=== PATIENT | female | born 1985 | race Caucasian/White ===

== ENCOUNTER 2017-09-17 10:17 | Emergency (ER) | payer OTHER ==
[2017-09-17 11:08] VITALS: BP 128/69; PULSE 66; RESP 18; TEMP 98; O2SAT 98
--- NOTE | 2017-09-17 12:50 | ED PDOC ---
HPI: Female Pain Time Seen by Provider: 09/17/17 12:06 Chief Complaint (Nursing): Female Genitourinary Chief Complaint (Provider): gential rash History Per: Patient, Custody Assistant (manager case Maame at bedside) Additional Complaint(s): 32-year-old female presents to emergency department for evaluation of painful genital rash. Patient states she first noticed 1 painful lesion and then the next day she had several. She states the pain is a burning pain and when she urinates the pain increases when urine touches skin surface. She denies any fever or chills. She has had slight white vaginal discharge with no bleeding. No abd pain. Patient is currently sexually active with 1 partner and her partner does not have similar symptoms. Past Medical History Reviewed: Historical Data, Nursing Documentation, Vital Signs Vital Signs: Last Vital Signs Temp 98 F 09/17/17 11:05 Pulse 66 09/17/17 11:05 Resp 18 09/17/17 11:05 BP 128/69 09/17/17 11:05 Pulse Ox 98 09/17/17 11:05 - Medical History PMH: No Chronic Diseases - Surgical History Surgical History: No Surg Hx - Family History Family History: States: No Known Family Hx - Living Arrangements Living Arrangements: With Family - Social History Current smoker - smoking cessation education provided: No Alcohol: None Drugs: Denies - Home Medications Home Medications: Ambulatory Orders Medication Instructions Recorded Acetaminophen with Codeine 1 tab PO Q6 PRN #15 tab 02/01/15 [Tylenol with Codeine No. 3 300 mg-30 mg] Metronidazole [Metrogel] 60 gm VAG HS #1 packet 09/17/17 Nitrofurantoin Macrocrystals 100 mg PO BID #14 tab 09/17/17 [Macrobid] valACYclovir [Valtrex] 1 gm PO BID #20 tab 09/17/17 - Allergies Allergies/Adverse Reactions: Allergies Allergy/AdvReac Type Severity Reaction Status Date / Time No Known Allergies Allergy Verified 02/01/15 15:30 Review of Systems ROS Statement: Except As Marked, All Systems Reviewed And Found Negative Constitutional: Negative for: Fever Gastrointestinal: Negative for: Nausea, Vomiting, Abdominal Pain Genitourinary Female: Positive for: Dysuria, Vaginal Discharge, Rash. Negative for: Hematuria, Vaginal Bleeding Physical Exam - Reviewed Nursing Documentation Reviewed: Yes Vital Signs Reviewed: Yes - Physical Exam Appears: Positive for: Well, Non-toxic, No Acute Distress Cardiovascular/Chest: Positive for: Regular Rate, Rhythm Respiratory: Positive for: Normal Breath Sounds Gastrointestinal/Abdominal: Positive for: Soft. Negative for: Tenderness, Distended, Guarding, Rebound Pelvic Exam: Positive for: Lesions (Multiple raised vesicular, erythematous lesions noted to genitalia, moderate tenderness to palpation, no abscess noted, no active bleeding or drainage, copious amount of malodorous white discharge noted from close cervical os and no vaginal bleeding, no CMT and no adnexal tenderness bilaterally) Back: Negative for: L CVA Tenderness, R CVA Tenderness Extremity: Positive for: Normal ROM Neurologic/Psych: Positive for: Alert, Oriented - Laboratory Results Urine POC: Negative Urine dip results: Positive for: Leukocyte Esterase (small) - ECG O2 Sat by Pulse Oximetry: 98 Pulse Ox Interpretation: Normal Medical Decision Making Medical Decision Makin32 year old with vaginal discomfort Plan: Urine dip Urine UA Urine culture Herpes genital culture CHL/GC culture Given clinical presentation, patient will be treated empirically for genital herpes. Prescription for Valtrex provided. UTI also noted, Macrobid prescription also given. Patient also given prescription for MetroGel. She was advised to avoid intercourse until symptoms resolve. Patient was made aware that she will receive a phone call for any positive test results. Referred to women's clinic for follow-up and is aware she can come back to the ED at any time if acutely. Disposition - Clinical Impression Clinical Impression: Urinary tract infection, Genital herpes, Bacterial vaginosis - Patient ED Disposition Is Patient to be Admitted: No Counseled Patient/Family Regarding: Studies Performed, Diagnosis, Need For Followup, Rx Given - Disposition Referrals: Women's Health Clinic [Outside] Disposition: Routine/Home Disposition Time: 13:37 Condition: STABLE Additional Instructions: Take prescription medications as directed. Avoid intercourse until symptoms resolve. You will receive a call for any positive test results. Follow up with clinic in 2-3 days. Prescriptions: Metronidazole [Metrogel] 60 gm VAG HS #1 packet Nitrofurantoin Macrocrystals [Macrobid] 100 mg PO BID #14 tab valACYclovir [Valtrex] 1 gm PO BID #20 tab Instructions: Genital Herpes Simplex (ED), Urinary Tract Infection in Women (ED ), Bacterial Vaginosis (ED) Forms: [facility] (Swedish), [facility] (Argentine) Print Language: NEPALESE
[2017-09-17 13:12] LABS: RBC URINE 2 /hpf (0-3); URINE BACTERIA RARE (<OCC); URINE BILIRUBIN NEGATIVE (NEGATIVE); URINE BLOOD NEGATIVE (NEGATIVE); URINE COLOR YELLOW (YELLOW); URINE GLUCOSE (UA) NEG (Normal); URINE KETONE NEGATIVE (NEGATIVE); URINE LEUKOCYTE ESTERASE LARGE Leu/uL (Negative); URINE PROTEIN NEGATIVE (NEGATIVE); URINE UROBILINOGEN 0.2-1.0 mg/dL (0.2-1.0); WBC URINE 3 /hpf (0-5)
== END 2017-09-17 14:35 | disposition home or self-care (01) ==
LOC: H.ER 10:17
DX: A60.00 Herpesviral infection of urogenital system, unspecified (principal); N39.0 Urinary tract infection, site not specified; N76.0 Acute vaginitis

== ENCOUNTER 2018-09-20 14:27 | Emergency (ER) | payer OTHER, SELFPAY ==
[2018-09-20 15:13] VITALS: RESP 16; O2SAT 100
[2018-09-20 16:27] LABS: VENOUS BLOOD GAS BASE EXCESS -2.2 mmol/L (0.0-2.0); VENOUS BLOOD GAS PCO2 41 mmHg (40-60); VENOUS BLOOD GAS PO2 20 mm/Hg (30-55); VENOUS BLOOD PH 7.36 (7.32-7.43)
[2018-09-20 16:36] LABS: SQUAMOUS EPITHIAL 3 /hpf (0-5); URINE BACTERIA RARE (<OCC); URINE BILIRUBIN NEGATIVE (NEGATIVE); URINE GLUCOSE (UA) NEG (Normal); URINE LEUKOCYTE ESTERASE SMALL Leu/uL (Negative); URINE PROTEIN NEGATIVE (NEGATIVE); URINE UROBILINOGEN 0.2-1.0 mg/dL (0.2-1.0)
[2018-09-20 16:40] LABS: URINE BLOOD SMALL (NEGATIVE); URINE CLARITY SLIGHT-CLOUDY (Clear); URINE COLOR YELLOW (YELLOW)
[2018-09-20 16:45] LABS: BASO % 0.2 % (0.0-2.0); EOS % 0.3 % (0.0-4.0); HEMOGLOBIN 12.7 g/dL (12.0-16.0); LYMPH % 11.1 % (20.0-40.0); MEAN CELL VOLUME 92.1 fl (81.0-99.0); MEAN CORPUSCULAR HEMOGLOBIN 31.8 pg (27.0-31.0); MEAN CORPUSCULAR HGB CONC 34.6 g/dL (33.0-37.0); MEAN PLATELET VOLUME 7.4 fl (7.2-11.7); MONO # 0.2 K/uL (0.0-0.8); MONO % 2.6 % (0.0-10.0); NEUT # 7.9 K/uL (1.8-7.0); NEUT % 85.8 % (50.0-75.0); RBC 3.98 Mil/uL (3.80-5.20); RED CELL DISTRIBUTION WIDTH 12.8 % (11.5-14.5); WHITE BLOOD COUNT 9.2 K/uL (4.8-10.8)
--- NOTE | 2018-09-20 17:33 | ED PDOC ---
HPI: Female Pain Time Seen by Provider: 09/20/18 15:30 Chief Complaint (Nursing): Female Genitourinary Chief Complaint (Provider): Female Genitourinary History Per: Patient History/Exam Limitations: no limitations Onset/Duration Of Symptoms: Hrs Current Symptoms Are (Timing): Still Present Quality Of Discomfort: Cramping Associated Symptoms: denies: Vomiting, Diarrhea, Urinary Symptoms Additional Complaint(s): Gloria Brown is a 33 year old female with no past medical history who is and is 11 weeks , presenting to the ED for evaluation of vaginal bleeding onset today. Patient states that she noted some cramping this morning and then developed vaginal bleeding which got heavier and prompted her ED visit. She states that she follows up at [facility] and reports that she had no problems with previous pregnancies with no previous miscarriages. Patient adds that her initial clinic visit for this was unremarkable and she denies any vomiting, diarrhea, dysuria, or history of STDs. Otherwise, she has had an uncomplicated up to this point. PMD: Curtis Villalba [employer] #: [id number] Pierre Abnormal Vaginal Bleeding: Yes Past Medical History Reviewed: Historical Data, Nursing Documentation, Vital Signs Vital Signs: Last Vital Signs Temp 99 F 09/20/18 15:09 Pulse 104 H 09/20/18 15:09 Resp 16 09/20/18 15:09 BP 151/74 H 09/20/18 15:09 Pulse Ox 100 09/20/18 15:09 - Medical History PMH: No Chronic Diseases Denies: Chronic Kidney Disease - Surgical History Other surgeries: Dilation and curettage - Family History Family History: States: Unknown Family Hx - Social History Current smoker - smoking cessation education provided: No Alcohol: None Drugs: Denies - Home Medications Home Medications: Ambulatory Orders Medication Instructions Recorded Acetaminophen with Codeine 1 tab PO Q6 PRN #15 tab 02/01/15 [Tylenol with Codeine No. 3 300 mg-30 mg] Metronidazole [Metrogel] 60 gm VAG HS #1 packet 09/17/17 Nitrofurantoin Macrocrystals 100 mg PO BID #14 tab 09/17/17 [Macrobid] valACYclovir [Valtrex] 1 gm PO BID #20 tab 09/17/17 - Allergies Allergies/Adverse Reactions: Allergies Allergy/AdvReac Type Severity Reaction Status Date / Time No Known Allergies Allergy Verified 09/20/18 15:09 Review of Systems ROS Statement: Except As Marked, All Systems Reviewed And Found Negative Gastrointestinal: Positive for: Abdominal Pain. Negative for: Vomiting, Diarrhea Genitourinary Female: Positive for: Vaginal Bleeding Physical Exam - Reviewed Nursing Documentation Reviewed: Yes Vital Signs Reviewed: Yes - Physical Exam Appears: Positive for: Non-toxic, No Acute Distress Head Exam: Positive for: ATRAUMATIC, NORMAL INSPECTION, NORMOCEPHALIC Skin: Positive for: Normal Color, Warm, DRY Eye Exam: Positive for: EOMI, Normal appearance, PERRL ENT: Positive for: Normal ENT Inspection Neck: Positive for: Normal, Painless ROM, Supple Cardiovascular/Chest: Positive for: Regular Rate, Rhythm. Negative for: Murmur Respiratory: Positive for: Normal Breath Sounds. Negative for: Wheezing, Respi ratory Distress Gastrointestinal/Abdominal: Positive for: Soft, Tenderness (mild suprapubic tenderness) Pelvic Exam: Positive for: Other (deferred) Back: Positive for: Normal Inspection. Negative for: L CVA Tenderness, R CVA Tenderness, Vertebral Tenderness Extremity: Positive for: Normal ROM Neurologic/Psych: Positive for: Alert, Oriented. Negative for: Motor/Sensory De ficits - Laboratory Results Result Diagrams: 09/20/18 16:15 - ECG O2 Sat by Pulse Oximetry: 100 (RA) Pulse Ox Interpretation: Normal Medical Decision Making Medical Decision Making: Time: 16:10 A/P: workup for threatened --Labs, UA, IV fluids --Ultrasound --Reassess patient 20:20 Pt with sono showing single, live, intrauterine at approximately 12 wks 6 days. Labs WBL and blood type O+. Discussed threatened with patient and she will follow up in women's health clinic in 2 days. Return parameters discussed. --------- -------- Scribe Attestation: Documented by Khushi Dang, acting as a scribe for Linda Vega MD. Provider Scribe Attestation: All medical record entries made by the Scribe were at my direction and personally dictated by me. I have reviewed the chart and agree that the record accurately reflects my personal performance of the history, physical exam, medical decision making, and the department course for this patient. I have also personally directed, reviewed, and agree with the discharge instructions and di sposition. Disposition - Clinical Impression Clinical Impression: Threatened - Disposition Disposition: Routine/Home Disposition Time: 20:28 Condition: STABLE Additional Instructions: Follow up in Women's Health clinic on Saturday for repeat blood levels and evaluation. Return to the emergency department if bleeding worsens or if you develop nausea, vomiting, dizziness, or other new symptoms. Instructions: Threatened Miscarriage (DC), Bleeding With (DC) Forms: [facility] (Mozambican), [facility] (Citizen [place]) Print Language: MARSHALLESE
[2018-09-20 20:56] VITALS: BP 137/72; PULSE 97; TEMP 98.7
--- NOTE | 2018-09-22 12:17 | US ---
Date of service: 09/20/2018 PROCEDURE: Obstetrical ultrasound examination HISTORY: 11 wks with vaginal bleed COMPARISON: Not available TECHNIQUE: Transabdominal FINDINGS: There is a single live intrauterine gestation. The fetus is in variable presentation. A grossly normal quantity of amniotic fluid is visualized. A posterior placenta is identified. There was no evidence of placenta previa. The cervix is long and closed. It measures 3.2 cm in length. The heart rate is 169 beats per minute. A 2 mm yolk sac is identified. biometry yields an average gestational age of 12 weeks 5 days. The PIO by ultrasound is 03/30/2019. No uterine mass is identified. The right ovary measures 2.2 x 1.3 x 2.4 cm. Normal arterial blood flow is demonstrated. The left ovary measures 2.0 x 1.2 x 2.6 cm. Normal arterial blood flow is demonstrated IMPRESSION: . single live intrauterine gestation of approximately 12 weeks 5 days without gross abnormality. Normal posterior placenta. Cervix long and closed. Normal amniotic fluid volume. PIO by ultrasound is 03/30/2019. No adnexal masses. The preliminary findings for this examination were reported by [facility] at 7:58 p.m. on 09/20/2018. There is concurrence of this report with the preliminary findings.
== END 2018-09-20 20:53 | disposition home or self-care (01) ==
LOC: H.ER 14:27
DX: O20.0 Threatened abortion (principal); Z36.9 Encounter for antenatal screening, unspecified; Z3A.12 12 weeks gestation of pregnancy

== ENCOUNTER 2019-03-10 06:54 | Emergency (ER) | payer SELFPAY ==
[2019-03-10 07:27] VITALS: BMI 35.9
--- NOTE | 2019-03-10 09:01 | OBDCSUM ---
Datetime: 03/10/2019 08:42 Discharged to, Provider: Home Follow up at, Provider: [facility] Disch Instr Activity: Normal activity Disch Instr Diet: Regular Discharge Time: 03/10/2019 08:43 Follow up in weeks, Provider: 03/18/19 Disch Referrals: None Discharge Comment, Provider: Pt also has an appoint w/ MFM for BPP at 9 am Discharge Diagnosis Prov Other: Vaginal spotting at 35+2 wks Datetime: 03/10/2019 08:08 Discharged to, Provider: Home Follow up at, Provider: [facility] Disch Instr Activity: Normal activity Disch Instr Diet: Regular Discharge Time: 03/10/2019 08:08 Follow up in weeks, Provider: 03/18/19
--- NOTE | 2019-03-10 09:01 | OBHP ---
Datetime: 03/10/2019 07:15 IP Adm Impression: , intrauterine IP Admit Plan: Observation/Evaluation; Discharge home Admit Comment, IP Provider: 34 y/o female at 35.2 wk GA based on LMP 07/03/18 presents to [facility] D w/ c/o vaginal spotting that began at 6AM today. She denies vaginal fluid loss. Endorses move ments. Last sexually active 3 days ago. Denies n/v/abdominal pain/c/d/urinary sx. OB: [facility] Pmhx: denies HomeRx: vitamins Allergies: NKDA SurgHx: denies Socialhx: denies toxic habits Famhx: denies ROS: all systems reviewed and negative except per HPI Physical exam: Gen: sitting up comfortably in bed; no acute distress Heart: S1 S2 present, RRR Lungs: Normal breathing pattern, clear to auscultation Abd: gravid, normal BS, soft, non-tender : speculum exam shows no active bleeding. SVE: /-2 Extremities: no erythema/swelling/tenderness Assessment and Plan 34 y/o female 35.2 wk IUP Speculum exam shows no active bleeding SVE 50/-2 [place] and NST Patient stable for discharge to home w/ instructions to follow up w/ OB. NF is 03/18/19. Case discussed w/ attending, Dr. Melissa Lawrence, [facility] OB Hospitalist Addendum: 34 yo at 35+2 wks w/ spotting w/ wiping after urination this am. No evidence of bleeding on speculum exam. VE /-2 FHT reactive. Pt discharged w/ bleeding and PTL precautions. Pt has an appoint w MFM for BPP at 9am. (ES) Pelvic Type - PN: Adequate Extremities - PN: Not Done Abdomen - PN: Normal Back - PN: Not Done Breast - PN: Not Done Lungs - PN: Normal Heart - PN: Normal Thyroid - PN: Not Done Neurologic - PN: Not Done HEENT - PN: Not Done General - PN: Normal Vital Signs Provider: Reviewed IP Chief Complaint: Vaginal bleeding NICHD Decel Fetus A IP Provider: None Dilatation, Provider: 1 Effacement, Provider: 50 Station, Provider: -2 Genitourinary Exam: Not Done DTRs - PN: Not Done
[2019-03-10 14:02] VITALS: BP 104/64; PULSE 72
== END 2019-03-10 08:45 | disposition home or self-care (01) ==
LOC: H.EROB2 06:54 → H.L&D 07:44 → H.EROB2 08:45
DX: O26.853 Spotting complicating pregnancy, third trimester (principal); Z3A.35 35 weeks gestation of pregnancy